=== PATIENT | male | born 1960 | race Caucasian/White ===

== ENCOUNTER → 2017-02-07 | Outpatient (CLI) | payer MEDICARE ==
[~2017-02-07] MED LIST: LISI40TA PO; METF500T4 PO; OMNIPAQUE 350 MG/ML, 100ML BOTTLE ONE; TRAM50TA2 PO
== END | disposition home or self-care (01) ==
LOC: CFH 11:38
PROVIDERS: ATTEND Internal Medicine
DX: C20 Malignant neoplasm of rectum (principal); C78.7 Secondary malignant neoplasm of liver and intrahepatic bile duct; R91.1 Solitary pulmonary nodule; Z90.49 Acquired absence of other specified parts of digestive tract; D73.89 Other diseases of spleen
CPT/HCPCS: 71260; 74177; Q9967

== ENCOUNTER → 2017-04-29 | Outpatient (CLI) | payer MEDICARE | END | disposition home or self-care (01) | LOC: CFH 11:34 | PROVIDERS: ATTEND Internal Medicine | DX: C20 Malignant neoplasm of rectum (principal); K76.0 Fatty (change of) liver, not elsewhere classified; R91.1 Solitary pulmonary nodule; K44.9 Diaphragmatic hernia without obstruction or gangrene; K76.9 Liver disease, unspecified | CPT/HCPCS: 71260; 74177; Q9967 ==

== ENCOUNTER → 2017-08-27 | Outpatient (CLI) | payer MEDICARE ==
[~2017-08-27] MED LIST changes: +AMLO5TAB2 PO; -OMNIPAQUE 350 MG/ML, 100ML BOTTLE ONE
== END | disposition home or self-care (01) ==
LOC: PETCFH 09:15
PROVIDERS: ATTEND Surgery
DX: C19 Malignant neoplasm of rectosigmoid junction (principal); C78.7 Secondary malignant neoplasm of liver and intrahepatic bile duct; I89.8 Other specified noninfective disorders of lymphatic vessels and lymph nodes; D71 Functional disorders of polymorphonuclear neutrophils
CPT/HCPCS: 78815; A9552

== ENCOUNTER → 2018-01-23 | Outpatient (CLI) | payer MEDICARE ==
[~2018-01-23] MED LIST changes: +OMNIPAQUE 350 MG/ML, 100ML BOTTLE ONE
== END | disposition home or self-care (01) ==
LOC: CFH 08:39
PROVIDERS: ATTEND Internal Medicine
DX: K76.89 Other specified diseases of liver (principal); N20.0 Calculus of kidney; C20 Malignant neoplasm of rectum; R91.1 Solitary pulmonary nodule
CPT/HCPCS: 71260; 74177; Q9967

== ENCOUNTER → 2018-04-09 | Outpatient (CLI) | payer MEDICARE ==
[~2018-04-09] MED LIST changes: -OMNIPAQUE 350 MG/ML, 100ML BOTTLE ONE
== END | disposition home or self-care (01) ==
LOC: PETCFH 08:27
PROVIDERS: ATTEND Internal Medicine
DX: C20 Malignant neoplasm of rectum (principal); R91.1 Solitary pulmonary nodule
CPT/HCPCS: 78815; A9552

== ENCOUNTER → 2018-04-25 | Outpatient (CLI) | payer MEDICARE | LOC: ROC 08:32 | PROVIDERS: ATTEND Radiology Radiation Oncology | DX: Z08 Encounter for follow-up examination after completed treatment for malignant neoplasm (principal); C20 Malignant neoplasm of rectum; C78.7 Secondary malignant neoplasm of liver and intrahepatic bile duct; E11.9 Type 2 diabetes mellitus without complications | CPT/HCPCS: 99204; G0463 ==

== ENCOUNTER → 2018-05-01 | Outpatient (CLI) | payer MEDICARE ==
[~2018-05-01] VITALS: Ht 167.6 cm; Wt 99.7 kg
[~2018-05-01] MED LIST changes: +FENTANYL PF 100 MCG/2ML ONE; +FLUMAZENIL 0.1 MG/1 ML, 5ML ONE; +LIDOCAINE-MPF 2% ,5ML ONE; -METF500T4 PO; +METF500T5 PO; +MIDAZOLAM 1 MG/ML, 5ML ONE; +NALOXONE 1 MG/ML, 2ML ONE; +SODIUM CHLORIDE 0.9% 1,000 ML IV SCH
[2018-05-01 10:13] VITALS: BP 148/95
== END | disposition home or self-care (01) ==
LOC: OUT 09:28
PROVIDERS: ATTEND Radiology Radiation Oncology
DX: C20 Malignant neoplasm of rectum (principal)
CPT/HCPCS: 49411; 77014; 99156; A4648; J2250; J3010; J3490; 99157; J2310

== ENCOUNTER → 2018-07-02 | Outpatient (CLI) | payer MEDICARE ==
[~2018-07-02] MED LIST changes: -FENTANYL PF 100 MCG/2ML ONE; -FLUMAZENIL 0.1 MG/1 ML, 5ML ONE; -LIDOCAINE-MPF 2% ,5ML ONE; -MIDAZOLAM 1 MG/ML, 5ML ONE; -NALOXONE 1 MG/ML, 2ML ONE; +OMNIPAQUE 350 MG/ML, 100ML BOTTLE ONE; -SODIUM CHLORIDE 0.9% 1,000 ML IV SCH
== END | disposition home or self-care (01) ==
LOC: CFH 08:15
PROVIDERS: ATTEND Radiology Radiation Oncology
DX: C20 Malignant neoplasm of rectum (principal); R19.00 Intra-abdominal and pelvic swelling, mass and lump, unspecified site; E11.9 Type 2 diabetes mellitus without complications
CPT/HCPCS: 72193; Q9967

== ENCOUNTER → 2018-07-03 | Outpatient (CLI) | payer MEDICARE ==
[~2018-07-03] MED LIST changes: -AMLO5TAB2 PO; +AMLO5TAB7 PO; +METF500T17 PO; -METF500T5 PO; -OMNIPAQUE 350 MG/ML, 100ML BOTTLE ONE
== END | disposition home or self-care (01) ==
LOC: ROC 07:14
PROVIDERS: ATTEND Radiology Radiation Oncology
DX: C20 Malignant neoplasm of rectum (principal)
CPT/HCPCS: 99213; G0463

== ENCOUNTER → 2018-10-08 | Outpatient (CLI) | payer MEDICARE ==
[~2018-10-08] MED LIST changes: +OMNIPAQUE 350 MG/ML, 100ML BOTTLE ONE
== END | disposition home or self-care (01) ==
LOC: CFH 08:35
PROVIDERS: ATTEND Internal Medicine
DX: R91.1 Solitary pulmonary nodule (principal); K44.9 Diaphragmatic hernia without obstruction or gangrene; K76.89 Other specified diseases of liver; C20 Malignant neoplasm of rectum
CPT/HCPCS: 71260; 74177; 82565; Q9967

== ENCOUNTER → 2019-01-01 | Outpatient (CLI) | payer MEDICARE ==
[~2019-01-01] MED LIST changes: +AMLO-150 PO; -AMLO5TAB7 PO
== END | disposition home or self-care (01) ==
LOC: CFH 09:18
PROVIDERS: ATTEND Internal Medicine
DX: C78.7 Secondary malignant neoplasm of liver and intrahepatic bile duct (principal); C20 Malignant neoplasm of rectum; K76.0 Fatty (change of) liver, not elsewhere classified; N20.0 Calculus of kidney; K43.9 Ventral hernia without obstruction or gangrene; N40.0 Benign prostatic hyperplasia without lower urinary tract symptoms; R19.01 Right upper quadrant abdominal swelling, mass and lump; Z90.49 Acquired absence of other specified parts of digestive tract
CPT/HCPCS: 71260; 74177; Q9967

== ENCOUNTER → 2019-03-19 | Outpatient (CLI) | payer MEDICARE | END | disposition home or self-care (01) | LOC: RAD 09:04 | PROVIDERS: ATTEND Internal Medicine | DX: C20 Malignant neoplasm of rectum (principal); C78.7 Secondary malignant neoplasm of liver and intrahepatic bile duct; R91.1 Solitary pulmonary nodule | CPT/HCPCS: 71260; 74177; Q9967 ==

== ENCOUNTER 2019-06-12 08:57 | Outpatient (CLI) | payer MEDICARE ==
[~2019-06-12 08:57] MED LIST changes: -OMNIPAQUE 350 MG/ML, 100ML BOTTLE ONE
[2019-06-12] MEDS ORDERED: OMNIPAQUE 350 MG/ML, 100ML BOTTLE ONE (14:19)
== END 2019-06-12 23:59 | disposition home or self-care (01) ==
LOC: CFH 08:57
PROVIDERS: ATTEND Internal Medicine
DX: C78.7 Secondary malignant neoplasm of liver and intrahepatic bile duct (principal); C79.89 Secondary malignant neoplasm of other specified sites; C20 Malignant neoplasm of rectum; K44.9 Diaphragmatic hernia without obstruction or gangrene; R91.1 Solitary pulmonary nodule; N40.0 Benign prostatic hyperplasia without lower urinary tract symptoms; K40.90 Unilateral inguinal hernia, without obstruction or gangrene, not specified as recurrent
CPT/HCPCS: 71260; 74177; Q9967

== ENCOUNTER 2019-09-22 11:28 | Inpatient (IN) | payer MEDICARE ==
[~2019-09-22] VITALS: Ht 167.6 cm; Wt 88.7 kg
[2019-09-22] MEDS ORDERED: AMLO5TAB10 PO (11:56)
[2019-09-22] MEDS ORDERED: GLYB2.5T2 PO (11:57)
--- NOTE | 2019-09-22 11:57 | NUR ---
ASSUMED CARE OF PATIENT IN ROOM 1. PT SENT BY DR. RUTH'S OFFICE AND C/O JAUNDICED EYES, DARK URINE AND RUQ ABD PAIN.
[2019-09-22] MEDS ORDERED: SODIUM CHLORIDE FLUSH 10ML SYR IVF ONE (12:30)
[2019-09-22 12:44] LABS: MEAN CORPUSCULAR HEMOGLOBIN 33.7 pg (27.5-34.5); MEAN CORPUSCULAR HGB CONC 33.1 g/dL (33.2-36.2); MEAN CORPUSCULAR VOLUME 101.5 fL (81-97); MEAN PLATELET VOLUME 8.9 fL (7.4-10.4); PLATELET COUNT 177 x10^3/uL (130-400); RED BLOOD COUNT 4.13 x10^6/uL (4.38-5.82); RED CELL DISTRIBUTION WIDTH 19.6 % (9.4-14.8)
[2019-09-22 12:52] LABS: ALANINE AMINOTRANSFERASE 132 U/L (12-78); ALBUMIN 2.5 g/dL (3.4-5.0); ANION GAP 9 mmol/L (5-15); CALCIUM 8.6 mg/dL (8.5-10.1); CHLORIDE 105 mmol/L (98-107)
[2019-09-22 12:55] LABS: ALKALINE PHOSPHATASE 751 U/L (45-117)
[2019-09-22 12:59] LABS: CREATININE 1.08 mg/dL (0.7-1.3); TOTAL PROTEIN 6.7 g/dL (6.4-8.2)
[2019-09-22 13:00] LABS: BILIRUBIN,TOTAL 23.1 mg/dL (0.2-1.0)
[2019-09-22 13:08] LABS: INTERNATIONAL NORMALIZED RATIO 1.41 (0.93-1.1); PROTHROMBIN TIME 14.6 Seconds (9.6-11.5)
[2019-09-22 13:14] LABS: MD YES
[2019-09-22 13:16] LABS: EOS#(MANUAL) 0.04 x10^3/uL (0.0-0.4); EOS% (MANUAL) 1 % (1-7); LYMPHS% (MANUAL) 25 % (22-44); MONOS#(MANUAL) 0.28 x10^3/uL (0.3-2.7); MONOS% (MANUAL) 7 % (2-9); SEG#(MANUAL) 2.68 x10^3/uL (1.8-6.8); SEGS% (MANUAL) 67 % (42-75)
[2019-09-22 13:17] LABS: <PLATELET ESTIMATE> ADEQUATE; <PLT MORPHOLOGY> NORMAL PLT MORPH; ANISOCYTOSIS 1+
[2019-09-22] MEDS ORDERED: OMNIPAQUE 350 MG/ML, 100ML BOTTLE ONE (13:42)
--- NOTE | 2019-09-22 14:25 | NUR ---
[facility] TELEPHONE HAND-OFF REPORT GIVEN TO RANJITH PYLE ON ONCOLOGY. PT READY TO GO TO HOSPITAL ROOM.
[2019-09-22] MEDS ORDERED: ONDANSETRON 2MG/ML, 2ML IVPush PRN (14:30)
--- NOTE | 2019-09-22 14:31 | NUR ---
Resident MD at bedside. PIV established. Medications provided per EMAR. DENIS. Resident doing stroke assessment at bedside. No needs expressed at this time. Addendum: 09/22/19 at 1432 by KAELA note charted on wrong pt above.
[2019-09-22 15:12] VITALS: BP 132/88
[2019-09-22] MEDS ORDERED: PHYTONADIONE 10 MG/ML, 1ML SQ ONE (16:00)
[2019-09-22] MEDS ORDERED: GADOTERATE 10 MMOL/20 ML VIAL ONE (16:52)
[2019-09-22 18:38] VITALS: BP 126/84
[2019-09-23 00:30] VITALS: BP 118/74
[2019-09-23 04:39] LABS: MEAN CORPUSCULAR HEMOGLOBIN 33.8 pg (27.5-34.5); MEAN CORPUSCULAR HGB CONC 33.6 g/dL (33.2-36.2); MEAN CORPUSCULAR VOLUME 100.7 fL (81-97); MEAN PLATELET VOLUME 8.7 fL (7.4-10.4); PLATELET COUNT 163 x10^3/uL (130-400); RED BLOOD COUNT 3.78 x10^6/uL (4.38-5.82); RED CELL DISTRIBUTION WIDTH 19.9 % (9.4-14.8)
[2019-09-23 04:44] LABS: INTERNATIONAL NORMALIZED RATIO 1.35 (0.93-1.1)
[2019-09-23 04:54] LABS: ALANINE AMINOTRANSFERASE 108 U/L (12-78); ANION GAP 8 mmol/L (5-15); CALCIUM 8.3 mg/dL (8.5-10.1); CHLORIDE 108 mmol/L (98-107)
[2019-09-23 04:57] LABS: ALKALINE PHOSPHATASE 657 U/L (45-117)
[2019-09-23 05:00] LABS: CREATININE 0.88 mg/dL (0.7-1.3); TOTAL PROTEIN 5.8 g/dL (6.4-8.2)
[2019-09-23 05:01] LABS: BILIRUBIN,TOTAL 21.3 mg/dL (0.2-1.0)
[2019-09-23 05:37] LABS: MD YES
[2019-09-23 05:40] LABS: <PLATELET ESTIMATE> ADEQUATE; <PLT MORPHOLOGY> NORMAL PLT MORPH; ANISOCYTOSIS 1+; BAND#(MANUAL) 0.04 x10^3/uL; BANDS%(MANUAL) 1 % (0-7); BASOS#(MANUAL) 0.08 x10^3/uL (0-0.1); BASOS% (MANUAL) 2 % (0-1); EOS#(MANUAL) 0.16 x10^3/uL (0.0-0.4); EOS% (MANUAL) 4 % (1-7); LYMPH#(MANUAL) 0.78 x10^3/uL (1-3.4); LYMPHS% (MANUAL) 20 % (22-44); MONOS#(MANUAL) 0.27 x10^3/uL (0.3-2.7); MONOS% (MANUAL) 7 % (2-9); SEG#(MANUAL) 2.57 x10^3/uL (1.8-6.8); SEGS% (MANUAL) 66 % (42-75)
[2019-09-23 05:41] LABS: TARGET CELLS 1+
[2019-09-23 07:16] VITALS: BP 116/78
[2019-09-23] MEDS ORDERED: POTASSIUM CHLORIDE 40 MEQ in SODIUM CHLORIDE 0.45% 500 ML IV ONE (10:00)
[2019-09-23] MEDS ORDERED: POTASSIUM CHLORIDE 40 MEQ in SODIUM CHLORIDE 0.9% 500 ML IV ONE (10:30)
[2019-09-23 12:50] VITALS: BP 121/79
[2019-09-23 19:00] VITALS: BP 137/86
[2019-09-24 02:19] VITALS: BP 135/87
[2019-09-24 04:25] LABS: ALANINE AMINOTRANSFERASE 108 U/L (12-78); ANION GAP 8 mmol/L (5-15); CALCIUM 8.1 mg/dL (8.5-10.1); CHLORIDE 107 mmol/L (98-107)
[2019-09-24 04:28] LABS: ALKALINE PHOSPHATASE 674 U/L (45-117)
[2019-09-24 04:34] LABS: CREATININE 0.82 mg/dL (0.7-1.3)
[2019-09-24 04:35] LABS: BILIRUBIN,TOTAL 21.5 mg/dL (0.2-1.0); TOTAL PROTEIN 5.8 g/dL (6.4-8.2)
[2019-09-24 07:38] VITALS: BP 115/73
[2019-09-24] MEDS ORDERED: DEXAMETHASONE 4 MG/ML, 1ML ONE (10:34)
[2019-09-24] MEDS ORDERED: PROPOFOL 10 MG/ML, 20ML ONE (10:34)
[2019-09-24] MEDS ORDERED: SUCCINYLCHOLINE 20 MG/ML, 10ML ONE (10:34)
[2019-09-24] MEDS ORDERED: ONDANSETRON 2MG/ML, 2ML ONE (10:34)
[2019-09-24] MEDS ORDERED: CEFAZOLIN 1,000 MG ONE (10:34)
[2019-09-24] MEDS ORDERED: FENTANYL PF 100 MCG/2ML ONE (10:37)
[2019-09-24] MEDS ORDERED: OMNIPAQUE 350 MG/ML, 50 ML BOTTLE ONE (11:13)
[2019-09-24] MEDS ORDERED: INDOMETHACIN 50 MG SUPP.RECT ONE (11:27)
[2019-09-24] MEDS ORDERED: INDOMETHACIN 50 MG SUPP.RECT PR ONE (11:30)
[2019-09-24 12:45] VITALS: BP 161/99
[2019-09-24 17:39] VITALS: BP 122/75
[2019-09-24 20:10] VITALS: BP 118/75
[2019-09-25 03:53] VITALS: BP 116/77
[2019-09-25 07:00] LABS: ANION GAP 9 mmol/L (5-15); CALCIUM 8.5 mg/dL (8.5-10.1); CHLORIDE 108 mmol/L (98-107)
[2019-09-25 07:04] LABS: ALANINE AMINOTRANSFERASE 101 U/L (12-78); ALKALINE PHOSPHATASE 661 U/L (45-117); BILIRUBIN,TOTAL 12.8 mg/dL (0.2-1.0); CREATININE 0.78 mg/dL (0.7-1.3); TOTAL PROTEIN 6.1 g/dL (6.4-8.2)
[2019-09-25 08:30] LABS: MEAN CORPUSCULAR HGB CONC 33.3 g/dL (33.2-36.2); MEAN PLATELET VOLUME 8.9 fL (7.4-10.4); PLATELET COUNT 190 x10^3/uL (130-400); RED BLOOD COUNT 4.11 x10^6/uL (4.38-5.82); RED CELL DISTRIBUTION WIDTH 19.8 % (9.4-14.8)
[2019-09-25 08:43] LABS: MD YES
[2019-09-25 09:04] LABS: ANISOCYTOSIS 1+; LYMPH#(MANUAL) 0.42 x10^3/uL (1-3.4); LYMPHS% (MANUAL) 11 % (22-44); MONOS#(MANUAL) 0.27 x10^3/uL (0.3-2.7); MONOS% (MANUAL) 7 % (2-9); SEG#(MANUAL) 3.12 x10^3/uL (1.8-6.8); SEGS% (MANUAL) 82 % (42-75); TARGET CELLS 1+
[2019-09-25 09:05] LABS: <PLATELET ESTIMATE> ADEQUATE; <PLT MORPHOLOGY> NORMAL PLT MORPH
[2019-09-25 09:22] VITALS: BP 119/79
[2019-09-25] MEDS ORDERED: ONDA4TAB7 PO (12:21)
[2019-09-25 14:16] VITALS: BP 118/79
== END 2019-09-25 15:40 | disposition home or self-care (01) | DRG 445 ==
LOC: ED 13:32 → EDIP 13:33 → SUATTDRO 13:57 → ED 14:05 → 4NW 14:16 → ED 14:16 → 4NW 15:11 → DCLOUNGE 09-25 15:21
PROVIDERS: ADMIT Family Medicine; ATTEND Internal Medicine
PROC: BF111ZZ Fluoroscopy of Biliary and Pancreatic Ducts using Low Osmolar Contrast (ICD-10-PCS; 2019-09-24)
PROC: 0F798DZ Dilation of Common Bile Duct with Intraluminal Device, Via Natural or Artificial Opening Endoscopic (ICD-10-PCS; principal; 2019-09-24 11:00)
DX: K83.1 Obstruction of bile duct (principal); C78.7 Secondary malignant neoplasm of liver and intrahepatic bile duct; R17 Unspecified jaundice; C20 Malignant neoplasm of rectum; C78.6 Secondary malignant neoplasm of retroperitoneum and peritoneum; E11.9 Type 2 diabetes mellitus without complications; G89.29 Other chronic pain; I10 Essential (primary) hypertension; K59.09 Other constipation; L29.9 Pruritus, unspecified; Z85.05 Personal history of malignant neoplasm of liver; Z93.3 Colostomy status; Z85.048 Personal history of other malignant neoplasm of rectum, rectosigmoid junction, and anus
CPT/HCPCS: 36415; 70450; 74177; 74183; 74328; 80053; 80074; 82140; 83605; 83735; 85025; 85610; 85730; 86038; 86644; 86645; 86663; 86664; 86665; 86694; 86695; 86696; 93005; G0378; J0690; J1100; J2405; J2704; J3010; J3430; J3480; Q9967; A9575; C1769; C1876; J0330; J7040

== ENCOUNTER 2019-12-14 05:59 | Day surgery (SDC) | payer MEDICARE ==
[~2019-12-14] VITALS: Ht 167.6 cm; Wt 80.2 kg
[~2019-12-14 05:59] MED LIST changes: +AMLO5TAB10 PO; +GLYB2.5T2 PO; +ONDA4TAB7 PO
[2019-12-14 06:40] VITALS: BP 133/89
[2019-12-14] MEDS ORDERED: EPINEPHRINE 1 MG/ML, 1ML ONE (06:54)
[2019-12-14] MEDS ORDERED: BUPIVACAINE/PF 0.5% ONE (06:54)
[2019-12-14] MEDS ORDERED: LACTATED RINGERS 1,000 ML IV SCH (07:06)
[2019-12-14] MEDS ORDERED: ONDA4TAB7 PO (07:16)
[2019-12-14] MEDS ORDERED: DOCU100C33 PO (07:16)
[2019-12-14] MEDS ORDERED: WITC1MED12 TP (07:16)
[2019-12-14] MEDS ORDERED: PROPOFOL 50 ML ONE (07:17)
[2019-12-14] MEDS ORDERED: MIDAZOLAM 1 MG/ML, 2ML ONE (07:18)
[2019-12-14] MEDS ORDERED: FENTANYL PF 250 MCG/5ML ONE (07:19)
[2019-12-14] MEDS ORDERED: ONDANSETRON 2MG/ML, 2ML ONE (07:50)
[2019-12-14] MEDS ORDERED: ONDANSETRON ODT 8 MG PO PRN (08:00)
[2019-12-14] MEDS ORDERED: OXYcodone 5 MG/5 ML ORAL.SOL UDC PO PRN (08:00)
[2019-12-14] MEDS ORDERED: DIAZEPAM 5 MG/ML, 2ML IVPush PRN (08:00)
[2019-12-14] MEDS ORDERED: EPHEDRINE 50 MG/ML, 1ML IM PRN (08:00)
[2019-12-14] MEDS ORDERED: FENTANYL PF 100 MCG/2ML IV PRN (08:00)
[2019-12-14] MEDS ORDERED: PROMETHAZINE 25 MG/ML, 1ML IV PRN (08:00)
[2019-12-14] MEDS ORDERED: EPHEDRINE 50 MG/ML, 1ML IVPush PRN (08:00)
[2019-12-14] MEDS ORDERED: MORPHINE SULFATE 4 MG/ML, 1ML IVPush PRN (08:00)
[2019-12-14] MEDS ORDERED: LABETALOL 5MG/ML, 20ML IV PRN (08:00)
[2019-12-14] MEDS ORDERED: DIPHENHYDRAMINE 50 MG/ML, 1ML IVPush PRN (08:00)
[2019-12-14] MEDS ORDERED: ONDANSETRON 2MG/ML, 2ML IV PRN (08:00)
[2019-12-14] MEDS ORDERED: MEPERIDINE/PF 25MG/ML,1ML IVPush PRN (08:00)
[2019-12-14] MEDS ORDERED: ACETAMINOPHEN 325 MG TABLET ONE (10:31)
== END 2019-12-14 10:43 | disposition home or self-care (01) ==
LOC: OUT 05:59
PROVIDERS: ATTEND Surgery
DX: K62.5 Hemorrhage of anus and rectum (principal); K62.89 Other specified diseases of anus and rectum; C20 Malignant neoplasm of rectum; C79.89 Secondary malignant neoplasm of other specified sites; C78.7 Secondary malignant neoplasm of liver and intrahepatic bile duct; C78.00 Secondary malignant neoplasm of unspecified lung; K63.89 Other specified diseases of intestine; K21.9 Gastro-esophageal reflux disease without esophagitis; Z92.21 Personal history of antineoplastic chemotherapy; Z92.3 Personal history of irradiation; Z90.49 Acquired absence of other specified parts of digestive tract; Z98.890 Other specified postprocedural states; Z93.2 Ileostomy status; Z79.899 Other long term (current) drug therapy
CPT/HCPCS: 46606; 82378; 82962; 88305; J0171; J2250; J2405; J2704; J3010; J7120

== ENCOUNTER → 2019-12-16 | Outpatient (CLI) | payer MEDICARE ==
[~2019-12-16] MED LIST changes: +DOCU100C33 PO; +OMNIPAQUE 350 MG/ML, 100ML BOTTLE ONE; +WITC1MED12 TP
== END | disposition home or self-care (01) ==
LOC: CFH 09:27
PROVIDERS: ATTEND Internal Medicine
DX: C19 Malignant neoplasm of rectosigmoid junction (principal); R91.1 Solitary pulmonary nodule; E04.1 Nontoxic single thyroid nodule; K76.0 Fatty (change of) liver, not elsewhere classified; R91.8 Other nonspecific abnormal finding of lung field; Z90.49 Acquired absence of other specified parts of digestive tract; R16.1 Splenomegaly, not elsewhere classified; N20.0 Calculus of kidney; K43.9 Ventral hernia without obstruction or gangrene; R16.0 Hepatomegaly, not elsewhere classified; Z95.5 Presence of coronary angioplasty implant and graft
CPT/HCPCS: 71260; 74177; Q9967

== ENCOUNTER 2020-04-11 10:59 | Observation (INO) | payer MEDICARE ==
[~2020-04-11] VITALS: Ht 167.6 cm; Wt 73.0 kg
[~2020-04-11 10:59] MED LIST changes: +ACET325T26 PO; +FURO20TA3 PO; -OMNIPAQUE 350 MG/ML, 100ML BOTTLE ONE; +PANT20TA3 PO; +POTA20TA6 PO
--- NOTE | 2020-04-11 11:22 | NUR ---
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 PT HAS METASTATIC CANCER, WHICH WAS CAUSATION OF NEED FOR DRAIN. PT ARRIVED WITH SIGNED FORM STATING HOSPICE HAS BEEN REVOKED TO PURSUE AGGRESSIVE TREATMENT FOR THIS REASON. PT A&O, REPSS EVEN AND UNLABORED, AMBULATORY WITH STEADY GAIT TO ROOM. .PT PLACED ON ALL MONITORS. CALL LIGHT IN REACH. AWAITING PROVIDER AND ORDERS.
[2020-04-11] MEDS ORDERED: SODIUM CHLORIDE 0.9% 1,000 ML IV ONE (11:45)
[2020-04-11] MEDS ORDERED: SODIUM CHLORIDE FLUSH 10ML SYR IVF ONE (12:00)
--- NOTE | 2020-04-11 12:00 | NUR ---
PT SEEN AND EXAMINED BY EDMD TURK, DRESSING REMOVED TO RIGHT THORAX BY MD, REDRESSED BY MD AND RN. PORT ACCESSED WITH MD AND PATIENT OK. PORT FLUSHES EASILY AND HAS GOOD BLOOD RETURN. PT A&O, RSPS EVEN AND UNLABORED. PT DENIES PAIN. ALL MONTIORS IN PLACE, CALL LIGHT IN REACH. PT UPDATED WITH POC.
[2020-04-11] MEDS ORDERED: ANTIBIOTIC PO (12:26)
[2020-04-11] MEDS ORDERED: MORPHINE PO (12:26)
[2020-04-11 12:28] LABS: MD YES; MEAN CORPUSCULAR HEMOGLOBIN 28.8 pg (27.5-34.5); MEAN CORPUSCULAR HGB CONC 31.7 g/dL (33.2-36.2); MEAN CORPUSCULAR VOLUME 90.9 fL (81-97); MEAN PLATELET VOLUME 7.6 fL (7.4-10.4); PLATELET COUNT 211 x10^3/uL (130-400); RED CELL DISTRIBUTION WIDTH 22.7 % (9.4-14.8)
[2020-04-11 12:38] LABS: ALBUMIN 1.6 g/dL (3.4-5.0); ANION GAP 11 mmol/L (5-15); CALCIUM 7.9 mg/dL (8.5-10.1); CHLORIDE 101 mmol/L (98-107)
[2020-04-11 12:43] LABS: ALANINE AMINOTRANSFERASE 21 U/L (12-78); ALKALINE PHOSPHATASE 496 U/L (45-117); BILIRUBIN,TOTAL 2.1 mg/dL (0.2-1.0); TOTAL PROTEIN 7.7 g/dL (6.4-8.2)
[2020-04-11 12:46] LABS: LYMPH#(MANUAL) 0.38 x10^3/uL (1-3.4); LYMPHS% (MANUAL) 3 % (22-44); MONOS#(MANUAL) 0.76 x10^3/uL (0.3-2.7); MONOS% (MANUAL) 6 % (2-9); SEG#(MANUAL) 11.47 x10^3/uL (1.8-6.8); SEGS% (MANUAL) 91 % (42-75)
[2020-04-11 12:47] LABS: ANISOCYTOSIS 2+; POLYCHROMASIA 1+
[2020-04-11 12:48] LABS: <PLATELET ESTIMATE> ADEQUATE; <PLT MORPHOLOGY> NORMAL PLT MORPH; OVALOCYTES 1+
--- NOTE | 2020-04-11 12:56 | NUR ---
LABWORK AND MOST RECENT VS REVIEWED WITH EDMD SAHM, ANTIBIOTICS REQUESTED PT IS MEETING CRITERIA FOR SEPSIS.
[2020-04-11] MEDS ORDERED: MEROPENEM 1 GM in SODIUM CHLORIDE 0.9% 100 ML IVPB ONE (13:30)
[2020-04-11] MEDS ORDERED: CEFTAZIDIME 1,000 MG in SODIUM CHLORIDE 0.9% 50 ML IVPB ONE (13:30)
--- NOTE | 2020-04-11 13:30 | NUR ---
IR RN at bedside, draining fluid from percutaneous drain. pt tolerating well.
--- NOTE | 2020-04-11 13:40 | NUR ---
changed antibiotic from fortaz to meropenem. meropenem requested from pharmacy.
[2020-04-11] MEDS ORDERED: SODIUM CHLORIDE FLUSH 10ML SYR IVF PRN (14:00)
[2020-04-11] MEDS ORDERED: CEFTAZIDIME 1,000 MG in SODIUM CHLORIDE 0.9% 50 ML IV ONE (14:00)
--- NOTE | 2020-04-11 14:19 | NUR ---
merropenem order cancelled, fortaz reordered. this RN clarified with MD Dillon and hospitalist that fortaz is desired antibiotic therapy. both MDs confirmed fortaz 1000mg is indicated antibiotic therapy. fortaz gtt initiated via IV pump after peripheral blood cx drawn x 2. pt confirms he has no allergies. pt a&o, repss even and unlabored. pt denies pain. repeat cxr taken and reviewed by hospitalist s/p fluid drainage by IR RN. pt to go to medical floor once report is given.
[2020-04-11] MEDS ORDERED: morphine SULFATE 10 MG/ML, 1ML IVPush PRN (14:30)
[2020-04-11] MEDS ORDERED: ONDANSETRON ODT 4 MG PO PRN (14:30)
[2020-04-11] MEDS ORDERED: ACETAMINOPHEN 325 MG TABLET PO PRN (14:30)
--- NOTE | 2020-04-11 14:42 | NUR ---
report called to receiving RANJITH Cunningham. pt transported to room 303-1, nadn at transport.
[2020-04-11 14:57] LABS: TROPONIN I < 0.015 ng/mL (0.000-0.045)
[2020-04-11 15:37] VITALS: BP 111/72
[2020-04-11 18:23] VITALS: BP 97/66
[2020-04-11 21:00] LABS: TROPONIN I < 0.015 ng/mL (0.000-0.045)
[2020-04-11] MEDS: CEFTAZIDIME 1,000 MG in SODIUM CHLORIDE 0.9% 50 ML IV SCH (21:00)
[2020-04-11] MEDS: FAMOTIDINE 20 MG TABLET PO SCH (21:00)
[2020-04-12 01:40] VITALS: BP 94/64
[2020-04-12 03:47] LABS: ANION GAP 6 mmol/L (5-15); CALCIUM 7.6 mg/dL (8.5-10.1); CHLORIDE 106 mmol/L (98-107); CREATININE 0.78 mg/dL (0.7-1.3)
[2020-04-12 04:37] LABS: MEAN CORPUSCULAR HEMOGLOBIN 29.4 pg (27.5-34.5); MEAN CORPUSCULAR HGB CONC 32.5 g/dL (33.2-36.2); MEAN CORPUSCULAR VOLUME 90.6 fL (81-97); MEAN PLATELET VOLUME 7.6 fL (7.4-10.4); PLATELET COUNT 175 x10^3/uL (130-400); RED CELL DISTRIBUTION WIDTH 22.2 % (9.4-14.8)
[2020-04-12 05:08] LABS: MICROSCOPIC NOT IND
[2020-04-12] MEDS: CEFTAZIDIME 1,000 MG in SODIUM CHLORIDE 0.9% 50 ML IV SCH (05:19)
[2020-04-12 05:45] LABS: BASOPHILS # (AUTO) 0.02 x10^3/uL (0-0.1); BASOPHILS % (AUTO) 0 % (0-1); EOSINOPHILS # (AUTO) 0.05 x10^3/uL (0-0.4); EOSINOPHILS % (AUTO) 1 % (1-7); LYMPHOCYTES # (AUTO) 0.69 x10^3/uL (1-3.4); LYMPHOCYTES % (AUTO) 10 % (22-44); MD SCAN; MONOCYTES # (AUTO) 0.74 x10^3/uL (0.2-0.8); MONOCYTES % (AUTO) 11 % (2-9); NEUTROPHILS # (AUTO) 5.57 x10^3/uL (1.8-6.8); NEUTROPHILS % (AUTO) 79 % (42-75)
[2020-04-12] MEDS: FAMOTIDINE 20 MG TABLET PO SCH (07:31)
[2020-04-12 07:38] VITALS: BP 100/69
[2020-04-12] MEDS ORDERED: LEVO500T8 PO (11:24)
== END 2020-04-12 13:20 | disposition home or self-care (01) ==
LOC: ED 12:19 → EDIP 13:56 → INTOOBSV 13:56 → 3WST 14:59
PROVIDERS: ADMIT Internal Medicine; ATTEND Internal Medicine
DX: T81.89XA Other complications of procedures, not elsewhere classified, initial encounter (principal); C20 Malignant neoplasm of rectum; E44.0 Moderate protein-calorie malnutrition; C34.90 Malignant neoplasm of unspecified part of unspecified bronchus or lung; D64.9 Anemia, unspecified; D69.6 Thrombocytopenia, unspecified; D72.829 Elevated white blood cell count, unspecified; J91.0 Malignant pleural effusion; E11.9 Type 2 diabetes mellitus without complications; E87.1 Hypo-osmolality and hyponatremia; I10 Essential (primary) hypertension; J98.11 Atelectasis; Z51.5 Encounter for palliative care; Z93.3 Colostomy status; Z79.899 Other long term (current) drug therapy; Z85.048 Personal history of other malignant neoplasm of rectum, rectosigmoid junction, and anus
CPT/HCPCS: 36415; 71045; 80048; 80053; 81003; 83605; 83880; 84145; 84443; 84484; 85025; 87040; 87070; 87075; 87077; 87186; 87205; 93005; 96365; 96366; 96375; 99285; G0378; J0713; J2270; J7030